=== PATIENT | female | born 1995 | race Caucasian/White ===

== ENCOUNTER 2020-01-07 17:27 | Emergency (ER) | payer OTHER ==
[~2020-01-07] VITALS: Ht 160 cm; Wt 51.3 kg
[2020-01-07] MEDS ORDERED: NORCO 5-325 TA1 EAC1 PO (19:35)
[2020-01-07] MEDS ORDERED: CYCLOBENZAPRINE5 MG PO (19:35)
[2020-01-07 20:07] VITALS: BP 118/79
== END 2020-01-07 20:08 | disposition home or self-care (01) ==
LOC: ER 17:27
DX: S06.0X0A Concussion without loss of consciousness, initial encounter (principal); M54.2 Cervicalgia; F17.210 Nicotine dependence, cigarettes, uncomplicated; V89.2XXA Person injured in unspecified motor-vehicle accident, traffic, initial encounter; Y93.I9 Activity, other involving external motion; Y92.488 Other paved roadways as the place of occurrence of the external cause; Y99.8 Other external cause status